=== PATIENT | male | born 1975 | race Caucasian/White ===

== ENCOUNTER → 2018-01-17 | Outpatient (CLI) | payer BC ==
[2018-01-17 16:51] LABS: CHOLESTEROL RISK RATIO 3.6
[2018-01-17 17:22] LABS: THYROID STIMULATING HORMONE 2.23 uIU/mL (0.465-4.680)
== END ==
LOC: COL.LAB 16:41
PROVIDERS: Family Medicine
DX: Z13.220 Encounter for screening for lipoid disorders (principal); E03.9 Hypothyroidism, unspecified; G25.81 Restless legs syndrome

== ENCOUNTER → 2019-03-04 | Outpatient (CLI) | payer BC | LOC: ZCOL.LAB 16:45 | DX: E03.9 Hypothyroidism, unspecified (principal) ==